=== PATIENT | male | born 1975 | race Two or more races ===

== ENCOUNTER 2022-04-08 17:31 | Emergency (ER) | payer SELFPAY ==
[~2022-04-08] VITALS: Ht 167.6 cm; Wt 100.0 kg
[2022-04-08] MEDS ORDERED: FentaNYL CITRATE PF 100 MCG/2 ML VIAL IVP ONE (18:00)
[2022-04-08] MEDS ORDERED: LORazepam 2 MG/ML VIAL IVP ONE (18:00)
[2022-04-08] MEDS ORDERED: IBUP-1492 PO (19:32)
[2022-04-08 20:00] VITALS: BP 135/74
== END 2022-04-08 21:25 | disposition home or self-care (01) ==
LOC: EMS 17:33
DX: S43.004A Unspecified dislocation of right shoulder joint, initial encounter (principal); Z98.52 Vasectomy status; V89.2XXA Person injured in unspecified motor-vehicle accident, traffic, initial encounter; Y93.89 Activity, other specified; Y92.89 Other specified places as the place of occurrence of the external cause; Y99.8 Other external cause status
CPT/HCPCS: 99284; 23650; 96374; 96375; 73030; 73560; J3010; J2060